=== PATIENT | male | born 1985 | race Caucasian/White ===

== ENCOUNTER → 2016-07-18 | Outpatient (CLI) | payer MEDICAID ==
--- NOTE | 2016-07-18 18:15 | DX ---
Right fourth finger, 3 views History: M79.644, pain, trauma. Findings: Right fourth finger demonstrates no evidence of fracture or dislocation. Distal tip and tu ft region demonstrates no fracture. No radiopaque foreign bodies. Impression: No fracture of the right fourth finger.
== END ==
LOC: FIMAGING 17:15
PROVIDERS: ATTEND Internal Medicine
DX: M79.644 Pain in right finger(s) (principal)

== ENCOUNTER 2017-08-02 20:13 | Emergency (ER) | payer MEDICAID ==
[2017-08-02 20:20] VITALS: O2SAT 97
[2017-08-02] MEDS ORDERED: HYDROmorphONE/DILAUDID 2 MG/ML INJ ONE (20:31)
[2017-08-02] MEDS ORDERED: HYDROmorphONE/DILAUDID 1 MG/ML INJ IVP ONE (20:31)
[2017-08-02] MEDS ORDERED: NS 1,000 ML IV ONE (20:31)
--- NOTE | 2017-08-02 20:33 | EDPHY ---
H & P Stated Complaint: RUQ PAIN FOR LAST HOUR DENIES N,V,D, OR FEVER Time Seen by Provider: 08/02/17 20:24 HPI/ROS: CHIEF COMPLAINT: Right upper quadrant pain HISTORY OF PRESENT ILLNESS: Patient is a 32-year-old man who comes to the emergency department complaining of right upper quadrant pain that began an hour ago. 3 hr ago he had chicken fingers from the grocery store. He has never had pain like this before. He has had heartburn and this does not feel similar. No fevers. No diarrhea. No vomiting. No testicular pain. Pain does radiate to his upper back. No CVA pain. No urinary symptoms. No lower abdominal pain. REVIEW OF SYSTEMS: Constitutional: denies: chills, fever, recent illness, recent injury EENTM: denies: blurred vision, double vision, nose congestion Respiratory: denies: cough, shortness of breath Cardiac: denies: chest pain, irregular heart rate, lightheadedness, palpitations Gastrointestinal/Abdominal: See HPI Genitourinary: denies: dysuria, frequency, hematuria, pain Musculoskeletal: denies: joint pain, muscle pain Skin: denies: lesions, rash, jaundice, bruising Neurological: denies: headache, numbness, paresthesia, tingling, dizziness, weakness Hematologic/Lymphatic: denies: blood clots, easy bleeding, easy bruising Immunologic/allergic: denies: HIV/AIDS, transplant EXAM: GENERAL: Well-appearing, well-nourished and in no acute distress. HEAD: Atraumatic, normocephalic. EYES: Pupils equal round and reactive to light, extraocular movements intact, sclera anicteric, conjunctiva are normal. ENT: TMs normal, nares patent, oropharynx clear without exudates. Moist mucous membranes. NECK: Normal range of motion, supple without lymphadenopathy or JVD. LUNGS: Breath sounds clear to auscultation bilaterally and equal. No wheezes rales or rhonchi. HEART: Regular rate and rhythm without murmurs, rubs or gallops. ABDOMEN: Right upper quadrant tenderness, positive Rinaldi sign BACK: No CVA tenderness, no spinal tenderness, step-offs or deformities EXTREMITIES: Normal range of motion, no pitting or edema. No clubbing or cyanosis. NEUROLOGICAL: Cranial nerves II through XII grossly intact. Normal speech, normal gait. 5/5 strength, normal movement in all extremities, normal sensation PSYCH: Normal mood, normal affect. SKIN: Warm, dry, normal turgor, no visible rashes or lesions. Source: Patient Exam Limitations: No limitations - Personal History Current Tetanus/Diphtheria Vaccine: Yes Current Tetanus Diphtheria and Acellular Pertussis (TDAP): Yes - Medical/Surgical History Hx Asthma: No Hx Chronic Respiratory Disease: No Hx Diabetes: No Hx Cardiac Disease: No Hx Renal Disease: No Hx Cirrhosis: No Hx Alcoholism: Yes Hx HIV/AIDS: No Hx Splenectomy or Spleen Trauma: No Other PMH: PMH:cuts on hand, depression; penis fracture;. PSH:none - Family History Significant Family History: No pertinent family hx - Social History Smoking Status: Former smoker Alcohol Use: Sober Constitutional: Initial Vital Signs Temperature (C) 36.8 C 08/02/17 20:17 Heart Rate 57 L 08/02/17 20:17 Respiratory Rate 18 08/02/17 20:17 Blood Pressure 151/93 H 08/02/17 20:17 O2 Sat (%) 97 08/02/17 20:17 O2 Delivery Mode Room Air Allergies/Adverse Reactions: No Known Allergies Allergy (Unverified 08/02/17 20:20) Home Medications: Medication Instructions Recorded Hydrocodone/APAP 5/325 [[place] 1 - 2 tab PO Q4H PRN #10 tab 08/02/17 5/325 (RX)] Zoloft 50mg (*) 08/02/17 Medical Decision Making - Diagnostics EKG Interpretation: An EKG obtained and was read and documented in trace view. Please see trace view for full reading and report. Sinus rhythm, no acute ischemic changes Imaging: Discussed imaging studies w/ callisthenics instructor Radiologist ED Course/Re-evaluation: 10:20 p.m. We discussed at length the imaging and lab results. The patient has gallstones. His pain is resolved. He has cholelithiasis but not cholecystitis. We discussed follow-up with surgery. I will prescribe him pain medication and case his symptoms return. He does parents are happy with this plan and declines further workup or testing. Differential Diagnosis: Partial list of the Differential diagnosis considered include but were not limited to; gallstone, cholecystitis, peptic ulcer disease and although unlikely based on the history and physical exam, I also considered acute coronary disease, perforation, appendicitis. I discussed these differential diagnoses and the plan with the patient as well as the usual and expected course. The patient understands that the diagnosis is provisional and that in medicine we are not always correct and that further workup is often warranted. Usual and customary warnings were given. All of the patient's questions were answered. The patient was instructed to return to the emergency department should the symptoms at all worsen or return, otherwise to followup with the physician as we discussed. - Data Points Laboratory Results: Laboratory Results 08/02/17 20:29 08/02/17 20:29 Medications Given: Discontinued Medications Hydromorphone HCl (Dilaudid) 1 mg IVP EDNOW ONE Stop: 08/02/17 20:32 Last Admin: 08/02/17 20:34 Dose: 1 mg Sodium Chloride (Ns) 1,000 mls @ 0 mls/hr IV EDNOW ONE; Wide Open PRN Reason: Protocol Stop: 08/02/17 20:32 Last Admin: 08/02/17 20:37 Dose: 1,000 mls Departure - Departure Disposition: Home, Routine, Self-Care Clinical Impression: Cholelithiasis Qualifiers: Cholelithiasis location: bile duct Cholecystitis presence: without cholecystitis Biliary obstruction: without biliary obstruction Qualified Code(s) : K80.50 - Calculus of bile duct without cholangitis or cholecystitis without obstruction Condition: Fair Instructions: Gallstones (ED) Referrals: Dinesh Weber MD [Primary Care Provider] - 2-3 days, call for appt. Eric Perez MD [Medical Doctor] - 5-7 days, call for appt. Prescriptions: Hydrocodone/APAP 5/325 [[place] 5/325 (RX)] 1 - 2 tab PO Q4H PRN #10 tab PRN Reason: Pain, Moderate
--- NOTE | 2017-08-02 20:36 | CPEKG ---
Heart Rate: 51 RR Interval: 1176 P-R Interval: 159 QRSD Interval: 90 QT Interval: 424 QTC Interval: 391 P [place]: 43 QRS [place]: 24 T Wave [place]: 30 EKG Severity - NORMAL ECG - EKG Impression: SINUS RHYTHM Electronically Signed By: Salvador Mc 02-Aug-2017 20:36:53
[2017-08-02 20:38] LABS: PLATELET COUNT 272 10^3/uL (150-400)
[2017-08-02 20:47] LABS: INR 1.01 (0.83-1.16); PROTIME(PATIENT) 13.5 SEC (12.0-15.0)
[2017-08-02 22:19] VITALS: BP 134/82; PULSE 59; RESP 16
[2017-08-02 22:33] VITALS: TEMP 97.9
== END 2017-08-02 22:33 | disposition home or self-care (01) ==
DX: K80.50 Calculus of bile duct without cholangitis or cholecystitis without obstruction (principal); E86.9 Volume depletion, unspecified; Z87.891 Personal history of nicotine dependence
CPT/HCPCS: 96374; J1170